=== PATIENT | female | born 1995 | race Caucasian/White ===

== ENCOUNTER 2017-10-17 09:12 | Emergency (ER) | payer OTHER, SELFPAY ==
[2017-10-17 09:13] VITALS: BP 136/84; PULSE 78; RESP 12; TEMP 36.6; BMI 21.1
--- NOTE | 2017-10-17 09:25 | ED.DCSUM_ITS ---
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 She states bleeding is now controlled. Unknown last tetanus. She is right-handed. Physical Examination: Afebrile vital signs are stable There is a 1 cm curvilinear laceration of the distal palmar left little finger. Wound edges are well approximated. Neurovascular intact. Test Results: Not indicated Emergency Department Course and Treatment: Tetanus was updated with Adacel. Wound was washed with water and soap. Wound was closed using Dermabond. Patient will follow-up as needed return if worsening or concerns. Impression: 1. 1 cm left little finger laceration with repair 2. Tetanus update This note was generated with [employer] dictation software. It may contain incorrect words, spelling, and punctuation that were not noted in review of the chart prior to signing ED Disposition - Plan for ED Patient: Disposition: Home or Assisted Living Chief Complaint: Laceration Instructions: ED Laceration Ext Skin Glue Referrals: [facility] [GROUP OF PHYSICIANS] - As Needed
[2017-10-17] MEDS: Diphth,Pertuss(Acell),Tet Vac 0.5 ML Vial IM (09:50)
== END 2017-10-17 10:04 | disposition home or self-care (01) ==
PROVIDERS: Emergency Provider Emergency Medicine
DX: S61.217A Laceration without foreign body of left little finger without damage to nail, initial encounter (principal); W26.0XXA Contact with knife, initial encounter; Y93.89 Activity, other specified; Y92.89 Other specified places as the place of occurrence of the external cause; Y99.0 Civilian activity done for income or pay; Z23 Encounter for immunization
CPT/HCPCS: 12001; 90471; 90715; 99282

== ENCOUNTER → 2019-02-04 09:46 | Outpatient (CLI) | payer OTHER, SELFPAY ==
[2019-02-04 09:39] VITALS: BMI 21.1
--- NOTE | 2019-02-04 09:47 | RAD_ITS ---
STUDY: X-RAY - LEFT KNEE REASON FOR EXAM: Chronic pain. TECHNIQUE: 4 view(s) of the knee. COMPARISON: None. FINDINGS: Normal visualized distal femur. Normal visualized proximal tibia and fibula. Normal proximal tibiofibular articulation. Normal medial femorotibial compartment. Normal lateral femorotibial compartment. Normal patellofemoral articulation. The soft tissue structures are unremarkable. RAD/Knee 4 or More Views IMPRESSION: Normal x-ray examination of the left knee. Electronically Signed: Deshawn Yeung MD at 10:29 EST Tel , Service support ,
--- NOTE | 2019-02-04 09:53 | RAD_ITS ---
STUDY: X-RAY - RIGHT KNEE REASON FOR EXAM: Chronic pain. TECHNIQUE: 4 view(s) of the knee. COMPARISON: Radiographs 01/27/2011. FINDINGS: Normal visualized distal femur. Normal visualized proximal tibia and fibula. Normal proximal tibiofibular articulation. Normal medial femorotibial compartment. Normal lateral femorotibial compartment. Normal patellofemoral articulation. The soft tissue structures are unremarkable. RAD/Knee 4 or More Views IMPRESSION: Normal x-ray examination of the right knee. Electronically Signed: Deshawn Yeung MD at 11:27 EST Tel , Service support ,
== END ==
LOC: HPRAD 09:46
PROVIDERS: Referring Provider Orthopaedic Surgery; Visit Provider Orthopaedic Surgery
DX: M25.561 Pain in right knee (principal); M25.562 Pain in left knee
CPT/HCPCS: 73564

== ENCOUNTER 2019-03-19 17:21 | Emergency (ER) | payer OTHER, SELFPAY ==
[2019-02-04 09:39] VITALS: BMI 21.1
[2019-03-19 17:22] VITALS: BP 128/78; PULSE 91; RESP 15; TEMP 36.6; O2SAT 99; BMI 20.5
[2019-03-19 17:40] VITALS: O2SAT 98
--- NOTE | 2019-03-19 17:43 | ED.VIS.INJ ---
History of Present Illness Chief Complaint: Fall Informant: Patient Onset: Today Mechanism/Context: Blunt Injury, Fall Quality of Pain: Dull, Aching Location: Left shoulder and arm, lateral left thigh and left knee Current Severity: Mild Maximum Severity: Moderate Worsened by: Movement Relieved by: Rest Associated Symptoms: Negative for: Parasthesias, Weakness, Loss of function, Inability to ambulate, Loss of consciousness, Amnesia Narrative: Patient is a 23-year-old female who was walking to work this morning. She slipped on ice. She fell onto her left side. She states she had pain immediately. The pain is gotten worse. She is able to walk and she is able to move her left upper extremity. She denies head trauma. She denies being dazed. Denies neck pain. Denies paresthesia, anesthesia or motor weakness in the right upper extremity or lower extremities. She complains of an area of numbness lateral left arm. She denies cardiac or respiratory symptoms. Prior similar symptoms: No Recent Illness/Hospitalization: No - Past Medical History (1) No significant past medical history Status: Acute Past Medical History - Allergies and Home Meds Allergies/Adverse Reactions: Allergies garlic Adverse Reaction (Verified 03/19/19 17:22) Constantino Primary Care Physician: Care Physician,No Primary [Primary Care Provider] - Prior records reviewed: No Past Medical History: None Surgical History: no surgical history Lives: Alone Smoking Status: Never smoker Alcohol: None Drugs: None Review of Systems General: Denies: Malaise Eyes: Denies: Visual changes - bilaterally, Blurred Vision - bilaterally ENT: Denies: Bilateral ear pain Cardiovascular: Denies: Chest pain Respiratory: Denies: Dyspnea, Dyspnea on exertion Gastrointestinal: Denies: Abdominal pain, Nausea, Vomiting, Diarrhea, Melena, Hematochezia Genitourinary: Denies: Dysuria, Hematuria, Frequency Musculoskeletal: Reports: Extremity Pain. Denies: Myalgias, Arthralgias, Neck pain, Back pain Skin: Denies: Rash, Wounds Neurological: Reports: Parasthesia. Denies: Headache, Weakness, Numbness Hematologic: Denies: Easy bruising, Easy bleeding Physical Exam Vital Signs/Narrative: Vital Signs Temp Pulse Resp BP Pulse Ox 03/19/19 17:40 98 03/19/19 17:22 97.9 F 91 15 128/78 H 99 Inital Vital Signs reviewed: Yes General: Well nourished, Well developed Head: Normocephalic, Atraumatic Eyes: Perrl, EOMI ENT: TM's clear, No hemotympanum or drainage, No trauma Neck: Nontender, Full ROM Cardiovascular: Regular rate, Regular rhythm, No murmurs, Normal S1, Normal S2 Respiratory: No distress, CTA bilaterally, Chest nontender Abdomen: Soft, Nontender, Nondistended, Normal bowel sounds Back: Nontender Extremeties: There is no pain to palpation over the left clavicle or AC joint. She does complain of pain to palpation over the lateral left arm. She is able to AB duct to 90 degrees. Internal/external rotation causes her discomfort. There is no evidence of trauma to left upper extremity. Axillary, median, radial and ulnar nerve function intact. There is no pain the patient over the lateral medial epicondyle, ligament process or radial head. There is no elevation of the distal radius ulna, carpal bones, metacarpal bones or phalanges. There is a hematoma noted in the greater trochanteric region. She is able to flex and extend the hip. She has full flexion-extension at the knee. She complains of pain on palpation of the left knee. The patella is non-ballotable. There is no effusion. There is no laxity with varus valgus stress testing. Jv's test and modified Leora's tests are negative. There is no pain or fullness in the popliteal fossa. There is no evidence of injury to the ankle or foot on the left side. Skin: Normal color, No rash Neurological: Alert, Oriented x3, Cranial nerves II-XII grossly intact, Normal Strength, Normal Sensation, Normal DTR. Negative for: Normal Gait Psychological: Normal affect - Glascow Coma Scale Eye Opening: Spontaneous Motor: Obeys Commands Verbal: Oriented Coma Scale Total: 15 Diagnostic/Tx/Re-eval - Medical Decision Making Patient's history and physical exam is consistent with muscle strain and contusion. Patient was informed that she may feel worse over the next 24 to 40 hours. She was informed to apply ice and she was prescribed anti-inflammatory since there is no contraindication. Imaging was not obtained since there is no point tenderness and she has range of motion of her extremities. ED Disposition - Plan for ED Patient: Disposition: Home or Assisted Living Diagnosis: Fall with injury, Contusion of left thigh, initial encounter, Contusion of left upper arm, initial encounter, Contusion of left knee, initial encounter Instructions: FALL, Mechanical, CONTUSION, Lower Extremity, CONTUSION, Upper Extremity Prescriptions: Naproxen [Naprosyn] 500 mg PO BID #14 tab Transmission Status: Pending to [id number] Referrals: Care Physician,No Primary [Primary Care Provider] - Madonna Cruz DO [STAFF PHYSICIAN] - 1 Week if not improving Additional Instructions: 1. You may feel worse over the next 24 to 48 hours 2. You may hurt in more places you presently do 3. You may hurt for several days before you get better.
[2019-03-19] MEDS: Naproxen 250 MG Tablet 500 MG PO (17:59)
[2019-03-19 18:31] VITALS: PULSE 88; RESP 16; O2SAT 98
== END 2019-03-19 18:31 | disposition home or self-care (01) ==
PROVIDERS: Emergency Provider Emergency Medicine
DX: S70.12XA Contusion of left thigh, initial encounter (principal); S40.022A Contusion of left upper arm, initial encounter; S80.02XA Contusion of left knee, initial encounter; W00.0XXA Fall on same level due to ice and snow, initial encounter; Y93.01 Activity, walking, marching and hiking; Y92.9 Unspecified place or not applicable
CPT/HCPCS: 99283

== ENCOUNTER 2020-04-09 12:00 | Outpatient (RCR) | payer OTHER, SELFPAY ==
--- NOTE | 2020-03-05 12:40 | HP.PTEVAL ---
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 Date of Evaluation: 03/05/20 Physical Therapist: Justice Garay, DPT, OCS, CSCS - Visit Plan Frequency: 1x/Week Duration: 4-6 Weeks Plan: weekly to 3x/week(pt wants weekly at first) for porgression of home strength ex. Gave phase 3 today and work to prone and elevator strength and progression over next 3 weeks. Change to 3x/week for sESTIM and manaul if pt not tolerating strength or pain increases and pt is willing. - Subjective Has shoulder instability. R shoulder is worse but both hurt. Needds MRI but need shoulder PT first. They have hurt for 5 years but has been consistent daily for 5 months. B R>L. R shoulder to 10 at times without reason and worse if moves too much. L shoulder gets to 6/10. Currently 1/10 L and 8 on R. Sleep is interrupted as it is hard to get comfortable adn move at night. 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 Fights through all work activities. Basic aDLs are done, they ust hurt. Enjoys video games adn drawing, limited volume of drawing due to pain, one hour at most. - Pain R shoulder Pain Intensity (Out of 10): 8 Pain Intensity Range: 0, 10 L shoulder Pain Intensity (Out of 10): 1 Pain Intensity Range: 0, 6 - Objective Forward head and scap posture, slightly elevated scap. Tender R supraspinatus and anterior shoulder area. Full aROM B shoulders and hypermobile. R shoulder painful at end range of flexion, abd, ext rotationa dn IR>L. Has 8 pain R at rest adn 1 L. Strength is 3+ IR/ER B no increased pain. 3 flexin and abd with increased pain R. Very weak overall in core, scap and RC/posture. Elbow and wrist aROM adn strength WFL and 4/5. reflexes 2/3 bi and tri. Sensation UE WNL to gross light touch. + HK and neer R B. - sulcus. pain with apprehension R. Good ROM overall and poor strength. - Goals Goal 1:: Pain free at rest Goal Time Frame: 2-4 Weeks Goal 2:: I approp HEP for strength of posture, RC and scap iwthout increased pain Goal Time Frame: 4-6 Weeks Goal 3:: Pt feel 70% better overall adn pain 2/10 at worst Goal Time Frame: 4-6 Weeks Goal 4:: Sleep without waking due to pain. Goal Time Frame: 4-6 Weeks - Rehabilitation Potential Physical Therapy Diagnosis: B shoulder pain and instability. Rehabilitation Potential: Questionable - Anticipated Interventions Patient/Client Instruction: Educate patient on: Condition, Plan of Care For the Purpose of:: To decrease pain, To improve muscle performance and motor function, To increase tolerance to activity/condition/position Therapeutic Exercise to Include: Strength training, Postural training, Scapular Strength/Stabilization For the Purpose of:: To decrease pain, To improve muscle performance and motor function, To increase tolerance to activity/condition/position, To improve ability of physical actions for home/community/work/leisure TENS: Yes Cryotherapy (ice pack, ice massage): Yes For the Purpose of:: To decrease pain Thank you for the opportunity to evaluate your patient. For Medicare and Medicare HMO plans, please review the plan of care and approve it. It will need to be FAXED BACK to us at [phone] for Medicare purposes. For Medicare only, by signing this I certify the plan of care. Please let me know if there are questions or concerns regarding this plan of care. Physician Signature: Date:
--- NOTE | 2020-04-09 12:27 | HP.PTDCSUM ---
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 for a total of 4 visit(s). Discharge Date: 04/09/20 Please see the following information for a summary of their discharge status. 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 Pain prior to yesterday was getting worse on L to 7/10 adn R shoulder to 8/10. Intermittent on left and constant on R. L shoulder is not as good as a month ago. R shoulder slightly better before yesterday but set back. Trying to emphasize at work different stations. Nothing scheduled with doctor. R shoulder Pain Intensity (Out of 10): 9 L shoulder Pain Intensity (Out of 10): 8 % Improvement: 10 Objective/Function: Full aROM and even hypermobile at shoulders, incresaed pain at end ranges of flexion adn abduction adn IR. Strength is improved at 4/5 rotations with no increased pain, flexiona dn abductionat 4- and still cause pain with resistance. Overall pain is not improving and pt wishes to f/u with doctor for next step whcih is appropriate at this point. Goal 1:: Pain free at rest Goal Progress: Not Progressing Goal 2:: I approp HEP for strength of posture, RC and scap iwthout increased pain Goal Progress: Goal Met Goal 3:: Pt feel 70% better overall adn pain 2/10 at worst Goal Progress: Not Progressing Goal 4:: Sleep without waking due to pain. Goal Progress: Not Progressing Plan: Continue strength at home adn get f/u viit with doctor for next medical step. D/C Discharge Comments: Pt to contact doctor regarding f/u for next medical step. If there are questions or concerns regarding this patient's physical therapy, please feel free to call me at [phone]. Thank you for the referral of this patient. Sincerely, Justice Garay, DPT, OCS, CSCS
== END 2020-04-09 19:00 | disposition home or self-care (01) ==
LOC: PT 12:00
PROVIDERS: Referring Provider Physician Assistant; Visit Provider Physician Assistant
DX: M25.311 Other instability, right shoulder (principal); M25.312 Other instability, left shoulder; M25.812 Other specified joint disorders, left shoulder; M25.811 Other specified joint disorders, right shoulder; M75.52 Bursitis of left shoulder; M75.51 Bursitis of right shoulder
CPT/HCPCS: 97110; 97161; 97164

== ENCOUNTER 2021-09-19 07:40 | Emergency (ER) | payer OTHER, SELFPAY ==
[2021-09-19 07:42] VITALS: BP 140/85; PULSE 108; RESP 16; TEMP 36.6; O2SAT 100; BMI 19.2
--- NOTE | 2021-09-19 08:21 | EX.ED.GENINJ ---
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 Last tetanus shot was about 4 years ago. Bleeding was not able to be stopped with elevation. Tetanus Immunization: <5 years PFS PFS Medical History no medical history Home Medications albuterol sulfate 90 mcg/actuation aerosol inhaler 1 puff IH PRN PRN Sob &/Or Wheezing 03/19/19 [History Last Taken Unknown] meloxicam 15 mg tablet 15 mg PO DAILY #30 tabs 04/29/20 [Rx Last Taken Unknown] Allergy/AdvReac Type Severity Reaction Status Date / Time garlic AdvReac Hives Verified 04/23/20 14:39 Surgical History no surgical history Social History (Updated 09/19/21 @ 08:[address] Gabriel Allen, DO) Smoking Status: Never smoker substance use type: does not use ROS ROS ED Constitutional Constitutional ED: Denies chills or weight loss Eyes Eyes: Denies change in vision or diplopia ENT ENT ED: Denies ear pain, rhinorrhea or sore throat Cardiovascular Cardiovascular: Denies chest pain, orthopnea, palpitations or racing heartbeat Respiratory/Chest Respiratory/Chest: Denies cough, dyspnea or orthopnea Gastrointestinal Gastrointestinal: Denies abdominal pain, diarrhea, nausea or vomiting Genitourinary Genitourinary ED: Denies dysuria, hematuria or urinary frequency Musculoskeletal Musculoskeletal: Denies arthralgias or myalgias Integumentary Denies abscess or rash Neurologic Neurologic: Denies headache(s) or weakness Psychiatric Psychiatric: Denies anxiety, depression, suicidal ideation or suicidal thoughts Endocrine Endocrinology: Denies polydipsia, polyphagia or polyuria Allergic/Immunologic Allergic/Immunologic ED: Denies mouth swelling, tongue swelling or urticaria EXAM Physical Exam Const Vital Signs: 09/19/21 07:42 Temperature 98 F Temperature Source Temporal Pulse Rate 108 H Respiratory Rate 16 Blood Pressure 140/85 H Blood Pressure Mean 103 Pulse Ox 100 Oxygen Delivery Method Room Air Positive well nourished and well developed General Appearance ED: well developed HEENT Reports normocephalic, head/scalp atraumatic and moist mucous membranes Eyes PERRL and EOMs intact bilaterally Neck no lymphadenopathy, supple and no JVD Resp normal respiratory effort and clear to auscultation bilaterally Cardio regular rate, regular rhythm and no murmurs GI normal to inspection, nondistended, normoactive bowel sounds and non-tender Palpation: soft Back/Spine no CVA tenderness and normal ROM Extremity normal to inspection General Extremety ED: Negative for edema General Extremity: Negative for edema Neuro oriented x3 and CN's II-XII intact bilaterally Sensorium / Orientation: alert Motor Exam: strength 5/5 throughout Psych mental status grossly normal Mood & Affect: Negative for depressed or tearful Skin no rashes or lesions noted Skin Narrative: Left index finger demonstrates a flap-like 2.5 cm laceration over the lateral aspect of the distal tip. There is venous bleeding. The flap skin is white compared to the rest of the finger MDM MDM MDM Narrative Medical decision making narrative: Patient was advised that the skin may not survive. Wound was locally anesthetized using 1% lidocaine washed with Shur-Clens and explored. We placed a total of 6 simple interrupted Ethilon sutures. This achieved homeostasis and good wound edges. Finger was dressed. Wound care discussed with patient. Stitches to be removed in 10 days Discharge Plan Triage Chief Complaint: Laceration ED Provider: Gabriel Allen Dx/Rx/DC Orders Clinical Impression: Finger laceration Instructions: ED Laceration Hand with ... Prescriptions: No Action meloxicam 15 mg tablet 15 mg PO DAILY Qty: 30 0RF albuterol sulfate 18 GM HFA aerosol inhaler 1 puff IH PRN PRN (Reason: Sob &/Or Wheezing) Primary Care Provider: Care Physician,No Primary Referrals: Care Physician,No Primary [Primary Care Provider] - Clinic,NOW [NON-STAFF] - 10 Day for suture removal Disposition Disposition: Home, Self Care
[2021-09-19] MEDS: Lidocaine 1% (20 ml mdv) 20 ML Vial INFILT (08:39)
== END 2021-09-19 08:40 | disposition home or self-care (01) ==
LOC: ED 08:27
PROVIDERS: Emergency Provider Emergency Medicine; Visit Provider Emergency Medicine
DX: S61.219A Laceration without foreign body of unspecified finger without damage to nail, initial encounter (principal); W26.0XXA Contact with knife, initial encounter
CPT/HCPCS: 12001; 99283